=== PATIENT | female | born 1970 | race Caucasian/White ===

== ENCOUNTER 2023-06-09 20:15 | Emergency (ER) | payer SELFPAY ==
[~2023-06-09] VITALS: Ht 162.6 cm; Wt 72.6 kg
[2023-06-09 20:35] VITALS: BP 156/96; PULSE 81; RESP 16; TEMP 96.9; O2SAT 98
[2023-06-09 23:14] VITALS: BP 156/96; PULSE 81; RESP 16; TEMP 96.9; O2SAT 98
== END 2023-06-09 23:14 | disposition home or self-care (01) ==
LOC: MED 20:15
DX: S61.411A Laceration without foreign body of right hand, initial encounter (principal); E11.9 Type 2 diabetes mellitus without complications; I10 Essential (primary) hypertension; W26.0XXA Contact with knife, initial encounter; Y93.89 Activity, other specified; Y92.89 Other specified places as the place of occurrence of the external cause; Y99.8 Other external cause status
CPT/HCPCS: 12001; 99282